=== PATIENT | female | born 1985 | race Caucasian/White ===

== ENCOUNTER 2023-01-02 22:33 | Emergency (ER) | payer MEDICAID ==
[~2023-01-02] VITALS: Ht 152.4 cm; Wt 70.5 kg
[2023-01-02 22:54] VITALS: BP 117/74; PULSE 62; RESP 18; TEMP 98.8
== END 2023-01-03 01:48 | disposition left against medical advice (07) ==
LOC: EMS 22:33
DX: R13.10 Dysphagia, unspecified (principal); Z53.21 Procedure and treatment not carried out due to patient leaving prior to being seen by health care provider
CPT/HCPCS: 99281; Z7502